=== PATIENT | female | born 1995 | race Caucasian/White ===

== ENCOUNTER 2019-05-18 19:50 | Emergency (ER) | payer OTHER, MEDICAID, SELFPAY ==
[2019-05-18 19:58] VITALS: BP 122/61; PULSE 86; RESP 24; TEMP 36.8; O2SAT 100; BMI 24.3
--- NOTE | 2019-05-18 20:00 | ED_ITS ---
HPI - Anxiety General Chief Complaint: Asthma Stated Complaint: states asthma attack Time Seen by Provider: 05/18/19 19:52 Source: patient Mode of arrival: Ambulatory Limitations: no limitations History of Present Illness HPI narrative: 24-year-old female nonsmoker with a history of bronchospasm associated with bronchitis as well as chronic epigastric pain presents with an episode of epigastric pain that came on relatively suddenly and made her admittedly feel anxious. Furthermore she felt like she could not breathe, stating the pain in her epigastrium a hard for her take a breath in. She denies any fever chills nor cough. She denies any chest pain. She denies nausea, vomiting or diarrhea. She states the pain in her epigastrium is worse with palpation and deep breath. She denies radiation of this pain. MD complaint: anxiety and shortness of breath Onset (ago): minute(s) Symptoms: dyspnea Severity: moderate Quality: intermittent Place: home Provoking factors: none known Relieving factors: nothing Associated symptoms: shortness of breath Related Data Previous Rx's Medication Instructions Recorded fluconazole [Diflucan] 150 mg PO SEE INSTRUCTIONS #2 tab 07/26/16 Allergies Allergy/AdvReac Type Severity Reaction Status Date / Time No Known Drug Allergies Allergy Verified 05/18/19 19:58 Review of Systems Constitutional Constitutional: Denies chills, Denies fatigue, Denies fever(s), Denies frequent falls, Denies lethargy and Denies weakness Eyes Eyes: Denies change in vision, Denies eye discharge, Denies irritation and Denies loss of vision ENT Ears, Nose, Mouth, and Throat: Denies change in voice, Denies dizziness, Denies neck pain, Denies sore throat and Denies throat swelling Cardiovascular Cardiovascular: Denies chest pain, Denies irregular heart rhythm, Denies lightheadedness, Denies palpitations, Reports dyspnea, Denies dyspnea on exertion and Denies orthopnea Respiratory Respiratory: Denies cough, Reports dyspnea, Denies dyspnea on exertion and Reports wheezing Gastrointestinal Gastrointestinal: Reports abdominal pain, Denies change in bowel habits, Denies diarrhea, Denies nausea and Denies vomiting Genitourinary Genitourinary: Denies hematuria, Denies flank pain, Denies urinary incontinence and Denies urinary urgency Musculoskeletal Musculoskeletal: Denies back pain, Denies muscle weakness, Denies neck pain, Denies numbness and Denies tingling Integumentary/Breasts Skin/Breast: Denies pruritus, Denies erythema, Denies rash and Denies wounds Neurologic Neurologic: Denies behavioral changes, Denies confusion, Denies dizziness, Denies frequent falls, Denies loss of vision, Denies numbness, Denies tingling and Denies weakness Psychiatric Psychiatric: Reports anxiety, Denies behavioral changes, Denies confusion, Denies depression, Denies homicidal ideation and Denies suicidal ideation Endocrine Endocrine: Denies fatigue, Denies flushing and Denies palpitations Hematologic/Lymphatic Hematologic/Lymphatic: Denies easy bruising Allergic/Immunologic Allergic/Immunologic: Denies urticaria, Denies throat swelling and Reports wheezing Patient History Surgical History Status post myringotomy with insertion of tube Family History (Updated 08/22/13 @ 00:00 by Enrique Benson MD) Father Age: 46 Obesity Mother Age: 46 Cholecystitis Social History Smoking Status: Never smoker Family History Father Age: 46 Obesity Mother Age: 46 Cholecystitis Social History Smoking Status: Never smoker Exam Narrative Exam Narrative: GENERAL: [24] year old patient appears stated age. Well- nourished, well-developed patient, in moderate distress, complaining of difficulty breathing, anxious, rapidly improves HEAD: Atraumatic. Normocephalic. EYES: Pupils equal round and reactive. Extraocular motions intact. No scleral icterus. No injection or drainage. ENT: Nose without bleeding, purulent drainage. Throat without erythema, tonsillar hypertrophy or exudate. Airway patent. NECK: Trachea midline. Non tender CARDIOVASCULAR: Regular rate and rhythm without murmurs, gallops, or rubs. RESPIRATORY: Clear to auscultation. Breath sounds equal bilaterally. No wheezes, rales, or rhonchi. GASTROINTESTINAL: Abdomen soft, minimal tenderness to palpation in the epigastrium, nondistended. EXTREMITIES: No edema or joint tenderness. BACK: Nontender without deformity or crepitance. No flank tenderness. NEURO: AOx3. SKIN: No rash or erythema of visible areas Initial Vital Signs Initial Vital Signs: Vital Signs Temperature 98.2 F 05/18/19 19:58 Pulse Rate 86 05/18/19 19:58 Respiratory Rate 24 05/18/19 19:58 Blood Pressure 122/61 05/18/19 19:58 Pulse Oximetry 100 05/18/19 19:58 Course Course Course Narrative: Patient rapidly improved upon arrival to the department, she seemed to respond to the DuoNeb which she admits help her breathing. The remainder of her visit she was resting comfortably. Lungs were clear, no systemic findings. The epigastrium use with normal ultrasound obtained. No labs indicated. Orders Ordered: ED Orders 05/18/19 20:01 US abdomen limited Stat Discontinued Medications Albuterol (Ventolin Hfa Prepack) 1 box MISC SEEINSTR ONE Stop: 05/18/19 21:55 Last Admin: 05/18/19 22:04 Dose: 1 box Documented by: DUNIA Albuterol/Ipratropium (Duoneb) 3 ml INH NOW ONE Stop: 05/18/19 20:00 Last Admin: 05/18/19 20:01 Dose: 3 ml Documented by: DUNIA Al Hydrox/Mg Hydrox/Simethicone 20 ml/ Lidocaine HCl 15 ml 0 ml PO NOW ONE Stop: 05/18/19 20:01 Last Admin: 05/18/19 20:30 Dose: 30 ml Documented by: DEBBY Vital Signs Vital signs: Vital Signs - 8 hr 05/18/19 19:58 05/18/19 20:05 05/18/19 22:14 Temperature 98.2 F Pulse Rate 86 68 66 Respiratory Rate 24 18 17 Blood Pressure 122/61 118/64 Pulse Oximetry 100 99 100 Discharge Plan Departure Patient Disposition: Home Clinical Impression: Acute epigastric pain, Anxiety, Acute bronchospasm Discharge Date/Time: 05/18/19 22:17 Instructions: DI for Epigastric Pain Activity Restrictions/Additional Instructions: *You have been diagnosed with [ epigastric pain, bronchospasm ] *What to do: *Take medications as directed, including an [id number] antacid like Pepcid or Zantac *Follow up with your primary care provider in 2-3 days, call for an appointment. Let them know you were seen in the Emergency Department and that we ask that you be seen in follow up *Return to ER if you should have any new, worsening or concerning symptoms Prescriptions: No Action fluconazole [Diflucan] 150 MG tablet 150 mg PO SEE INSTRUCTIONS Qty: 2 RF: 0 Referrals: Clark Wang MD [Primary Care Provider] - Stand Alone Forms: Work Release Note
[2019-05-18] MEDS: ALBUTEROL/IPRATROPIUM 3 ML AMPUL INH (20:01)
--- NOTE | 2019-05-18 20:01 | DI.US.S_ITS ---
PROCEDURE: US ABDOMEN LIMITED INDICATIONS: SEVERE EPIGASTRIC PAIN TECHNIQUE: Real-time focused scanning was performed of the abdomen, with image documentation. COMPARISON: Abdominal ultrasound 12/11/2015. FINDINGS: Liver: Echogenicity is within normal limits. Normal in size. Gallbladder: Mildly prominent. No stones or sludge. Normal gallbladder wall thickness. No pericholecystic fluid. Negative sonographic Juarez's sign. Bile ducts: CBD is normal measuring measures 3 mm. No intrahepatic ductal dilatation. Right kidney: No hydronephrosis. Miscellaneous: No free fluid seen. IMPRESSION: 1. No cholecystitis. Gallbladder is mildly prominent in size which could be due to n.p.o. status. No gallstones. 2. No biliary ductal dilatation. 3. No right kidney hydronephrosis. Dictated by: Christopher Roa M.D. on 05/18/2019 at 22:12 Approved by: Christopher Roa M.D. on 05/18/2019 at 22:15
[2019-05-18 20:05] VITALS: PULSE 68; RESP 18; O2SAT 99
[2019-05-18] MEDS: MAG HYDROX/ALUMINUM/SIMETH SUS 20 ML, LIDOCAINE VISCOUS 2% 15 ML PO (20:30)
--- NOTE | 2019-05-18 20:33 | PC.NURSE ---
pt reports a 4/10 heartburn feeling. Provided GI cocktail.
[2019-05-18] MEDS: ALBUTEROL HFA PREPACK 1 BOX MISC (22:04)
[2019-05-18 22:14] VITALS: BP 118/64; PULSE 66; RESP 17; O2SAT 100
== END 2019-05-18 22:17 | disposition home or self-care (01) ==
PROVIDERS: Emergency Provider Emergency Medicine; PCP Orthopaedic Surgery
DX: R10.13 Epigastric pain (principal); F41.9 Anxiety disorder, unspecified; J98.01 Acute bronchospasm
CPT/HCPCS: 76705; 76830; 94150; 94640; 99282; 99284

== ENCOUNTER 2019-06-18 18:57 | Emergency (ER) | payer OTHER, MEDICAID, SELFPAY ==
[2019-06-18 19:04] VITALS: BP 110/59; PULSE 68; RESP 16; TEMP 37.1; O2SAT 100; BMI 25.7
[2019-06-18] MEDS: PANTOPRAZOLE 40 MG VIAL IV (19:15)
[2019-06-18] MEDS: SODIUM CHLORIDE 0.9% 1,000 ML 1000 ML IV (19:15)
[2019-06-18] MEDS: ONDANSETRON 4 MG/2 ML INJ IV (19:15)
[2019-06-18 19:17] LABS: Add Manual Diff / Slide Review NO; Basophils Absolute Auto 0 /uL (0-100); Basophils Percent Auto 0.6 % (0-2); Eosinophils Absolute Auto 0 /uL (0-450); Eosinophils Percent Auto 0.3 % (2-4); Hematocrit 39.8 % (36-46); Hemoglobin 13.5 g/dL (12.0-16.0); Lymphocytes Absolute Auto 900 /uL (1100-4500); Lymphocytes Percent Auto 13.4 % (25-40); Mean Corpuscular Hemoglobin 30.6 PG (26-34); Mean Corpuscular Volume 90.1 fL (80-100); Monocytes Absolute Auto 400 /uL (0-900); Monocytes Percent Auto 5.7 % (3-14); Neutrophils Absolute Auto 5300 /uL (1500-7000); Platelet Count 243 X10^3/uL (150-400); Red Blood Cell Count 4.42 X10^6/uL (4.0-5.2); Red Cell Distribution Width 13.3 % (11.6-14.8); White Blood Cell Count 6.6 X10^3/uL (4.5-11.0)
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
[2019-06-18 19:33] LABS: Blood Urea Nitrogen 11 mg/dL (7-17); Calcium 9.1 mg/dL (8.4-10.2); Carbon Dioxide 24 mmol/L (22-32); Chloride 106 mmol/L (98-107); Estimated Glomerular Filt Rate > 60.0 mL/min (>60); Glucose 102 mg/dL (70-100); HEMOLYSIS < 15 (0-50); Potassium 3.8 mmol/L (3.4-5.1); Sodium 138 mmol/L (137-145)
[2019-06-18 20:06] VITALS: BP 110/57; PULSE 72; RESP 16; O2SAT 98
== END 2019-06-18 20:07 | disposition home or self-care (01) ==
PROVIDERS: Emergency Provider Emergency Medicine; PCP Orthopaedic Surgery
DX: E86.0 Dehydration (principal); R11.2 Nausea with vomiting, unspecified
CPT/HCPCS: 36415; 80048; 85025; 96361; 96374; 96375; 99283; 99284; C9113; J2405

== ENCOUNTER 2019-09-20 22:56 | Emergency (ER) | payer OTHER, MEDICAID, SELFPAY ==
[2019-09-20 23:06] VITALS: BP 125/59; PULSE 89; RESP 19; TEMP 37.1; O2SAT 100; BMI 24.7
[2019-09-20] MEDS: SODIUM CHLORIDE 0.9% 1,000 ML 1000 ML IV (23:14)
[2019-09-20] MEDS: KETOROLAC 60 MG/2 ML VIAL 30 MG IV (23:14)
[2019-09-20] MEDS: diphenhydrAMINE 50 MG/ML VIAL 25 MG IV (23:14)
[2019-09-20] MEDS: METOCLOPRAMIDE 10 MG/2 ML INJ IV (23:14)
--- NOTE | 2019-09-20 23:20 | ED_ITS ---
HPI - Headache General Chief Complaint: Headache Stated Complaint: headache, uncontrolled shaking, vomiting Time Seen by Provider: 09/20/19 23:02 Source: patient Mode of arrival: Ambulatory Limitations: no limitations History of Present Illness HPI Narrative: 24-year-old female. Prior history of migraine headaches here for evaluation of a migraine headache. She states that her headache started approximately 1600 hours this afternoon. Was gradual onset. States that it feels in character like her prior headaches only worse. Has not tried anything for the symptoms prior to arrival. Related Data Previous Rx's Medication Instructions Recorded fluconazole [Diflucan] 150 mg PO SEE INSTRUCTIONS #2 tab 07/26/16 ondansetron 4 mg PO TID-QID PRN #10 tab 06/18/19 Allergies Allergy/AdvReac Type Severity Reaction Status Date / Time No Known Drug Allergies Allergy Verified 06/18/19 19:06 Review of Systems Constitutional Constitutional: Denies fever(s) and Reports headache(s) Eyes Eyes: Denies blurry vision, Denies diplopia and Reports photophobia ENT Ears, Nose, Mouth, and Throat: Reports headache(s), Denies sinus pressure and Denies sore throat Cardiovascular Cardiovascular: Denies chest pain and Denies dyspnea Respiratory Respiratory: Denies dyspnea Gastrointestinal Gastrointestinal: Reports vomiting Musculoskeletal Musculoskeletal: Denies myalgias and Denies arthralgias Integumentary/Breasts Skin/Breast: Denies rash Neurologic Neurologic: Denies behavioral changes and Reports headache(s) Psychiatric Psychiatric: Denies behavioral changes Hematologic/Lymphatic Hematologic/Lymphatic: Denies easy bleeding and Denies easy bruising Patient History Medical History Acute costochondritis (Inactive) Bacterial vaginosis (Inactive) Epigastric abdominal pain (Inactive) Ethmoid sinusitis (Inactive) Eustachian tube dysfunction (Inactive) Gastritis (Inactive) Sinusitis, acute (Inactive) Sprain of hand, thumb, right (Inactive) Vaginitis (Inactive) Surgical History Status post myringotomy with insertion of tube Social History Smoking Status: Never smoker Smoking Status: Never smoker alcohol intake frequency: holidays/special occasions only Substance Use Type: does not use Exam Initial Vital Signs Initial Vital Signs: Vital Signs Temperature 98.7 F 09/20/19 23:06 Pulse Rate 89 09/20/19 23:06 Respiratory Rate 19 09/20/19 23:06 Blood Pressure 125/59 L 09/20/19 23:06 Pulse Oximetry 100 09/20/19 23:06 Const General: cooperative and well developed Limitations: mental status not altered HENMT Head: normal to inspection and normocephalic Resp Effort & Inspection: normal respiratory effort Auscultation: clear to auscultation bilaterally Cardio Rate: regular rate Rhythm: regular rhythm Skin Lesions: no lesions Rashes: no rashes Neuro General: alert, awake and oriented x3 Cranial Nerves: CN's II-XI intact bilaterally Cognition: normal cognition Speech: speech normal Extrem General: normal to inspection and capillary refill normal Scores GCS Marlene coma scale eye opening: Spontaneous Marlene coma scale verbal response: Orientated Marlene coma scale motor response: Obey commands Marlene coma scale total score: 15 Course Orders Ordered: ED Orders 09/20/19 23:21 Basic Metabolic Panel Stat Complete Blood Count AUTO DIFF Stat Test Serum,Qual Stat Discontinued Medications Diphenhydramine HCl (Benadryl) 25 mg IV NOW ONE Stop: 09/20/19 23:06 Last Admin: 09/20/19 23:14 Dose: 25 mg Documented by: LUBNA Sodium Chloride (Normal Saline 0.9%) 1,000 mls @ 1,000 mls/hr IV BOLUS ONE Stop: 09/21/19 00:04 Last Infusion: 09/21/19 00:16 Dose: 0 mls/hr Documented by: Admin: 09/20/19 23:14 Dose: 1,000 mls/hr Documented by: LUBNA Ketorolac Tromethamine (Toradol) 30 mg IV NOW ONE Stop: 09/20/19 23:06 Last Admin: 09/20/19 23:14 Dose: 30 mg Documented by: LUBNA Metoclopramide HCl (Reglan) 10 mg IV NOW ONE Stop: 09/20/19 23:06 Last Admin: 09/20/19 23:14 Dose: 10 mg Documented by: LUBNA Vital Signs Vital signs: Vital Signs - 8 hr 09/20/19 23:06 09/21/19 00:17 Temperature 98.7 F Pulse Rate 89 70 Respiratory Rate 19 16 Blood Pressure 125/59 L Blood Pressure [Left Arm] 93/51 L Pulse Oximetry 100 100 MDM - Headache Lab Data Attestation: I reviewed the patient's lab results. Result diagrams: 09/20/19 23:21 09/20/19 23:21 Labs: Lab Results 09/20/19 09/20/19 09/20/19 Range/Units 23:21 23:21 23:21 WBC 14.2 H (4.5-11.0) X10^3/uL RBC 4.29 (4.0-5.2) X10^6/uL Hgb 13.1 (12.0-16.0) g/dL Hct 38.4 (36-46) % MCV 89.6 (80-100) fL MCH 30.4 (26-34) PG MCHC 34.0 (30-36) % RDW 12.8 (11.6-14.8) % Plt Count 266 (150-400) X10^3/uL Neut % (Auto) 85.2 H (50-75) % Lymph % (Auto) 8.8 L (25-40) % [place] % (Auto) 5.1 (3-14) % Eos % (Auto) 0.4 L (2-4) % Baso % (Auto) 0.5 (0-2) % Neut # (Auto) 02810 H (7531-7847) /uL Lymph # (Auto) 1300 (6579-2686) /uL [place] # (Auto) 700 (0-900) /uL Eos # (Auto) 100 (0-450) /uL Baso # (Auto) 100 (0-100) /uL Sodium 142 (137-145) mmol/L Potassium 3.6 (3.4-5.1) mmol/L Chloride 106 (98-107) mmol/L Carbon Dioxide 25 (22-32) mmol/L BUN 12 (7-17) mg/dL Creatinine 0.60 (0.52-1.04) mg/dL Estimated GFR > 60.0 (>60) mL/min BUN/Creatinine Ratio 20.0 (6-22) Glucose 126 H (70-100) mg/dL Calcium 9.7 (8.4-10.2) mg/dL Serum , Qual Negative (Negative) MDM Narrative Medical decision making narrative: Patient has a leukocytosis however I suspect that this is demargination/stress reaction from the retching in the vomiting that she has been doing for the past several hours. Nonfocal neurologic exam. Has a history of headaches. States this feels in character just like her prior headaches only worse. No fevers. Low suspicion for meningitis. No trauma. I feel that we can hold on radiologic studies. States that her headache went from a 10/10 to a /10 with medications. Will discharge home with return precautions. Discharge Plan Departure Patient Disposition: Home Clinical Impression: Migraine Qualifiers: Migraine type: unspecified Status migrainosus presence: without status migrainosus Intractability: not intractable Qualified Code(s): G43.909 - Migraine, unspecified, not intractable, without status migrainosus Instructions: DI for Migraine Activity Restrictions/Additional Instructions: Continue all of your medications as directed. Recommend you talk with your primary provider about further workup and treatment of your headaches. Return to the emergency department for any new or worsening symptoms Prescriptions: No Action fluconazole [Diflucan] 150 MG tablet 150 mg PO SEE INSTRUCTIONS Qty: 2 RF: 0 ondansetron 4 mg tablet,disintegrating 4 mg PO TID-QID PRN (Reason: nausea and vomiting) Qty: 10 RF: 0 Referrals: Clark Wang MD [Primary Care Provider] -
[2019-09-20 23:29] LABS: Add Manual Diff / Slide Review NO; Basophils Absolute Auto 100 /uL (0-100); Basophils Percent Auto 0.5 % (0-2); Eosinophils Absolute Auto 100 /uL (0-450); Eosinophils Percent Auto 0.4 % (2-4); Hematocrit 38.4 % (36-46); Hemoglobin 13.1 g/dL (12.0-16.0); Lymphocytes Absolute Auto 1300 /uL (1100-4500); Lymphocytes Percent Auto 8.8 % (25-40); Mean Corpuscular Hemoglobin 30.4 PG (26-34); Mean Corpuscular Volume 89.6 fL (80-100); Monocytes Absolute Auto 700 /uL (0-900); Monocytes Percent Auto 5.1 % (3-14); Neutrophils Absolute Auto 12000 /uL (1500-7000); Neutrophils Percent Auto 85.2 % (50-75); Platelet Count 266 X10^3/uL (150-400); Red Blood Cell Count 4.29 X10^6/uL (4.0-5.2); Red Cell Distribution Width 12.8 % (11.6-14.8); White Blood Cell Count 14.2 X10^3/uL (4.5-11.0)
[2019-09-20 23:39] LABS: Blood Urea Nitrogen 12 mg/dL (7-17); Calcium 9.7 mg/dL (8.4-10.2); Carbon Dioxide 25 mmol/L (22-32); Chloride 106 mmol/L (98-107); Estimated Glomerular Filt Rate > 60.0 mL/min (>60); Glucose 126 mg/dL (70-100); HEMOLYSIS < 15 (0-50); Potassium 3.6 mmol/L (3.4-5.1); Pregnancy Test Serum,Qual Negative (Negative); Sodium 142 mmol/L (137-145)
[2019-09-21 00:17] VITALS: BP 93/51; PULSE 70; RESP 16; O2SAT 100
== END 2019-09-21 01:05 | disposition home or self-care (01) ==
PROVIDERS: Emergency Provider Emergency Medicine; PCP Orthopaedic Surgery
DX: G43.909 Migraine, unspecified, not intractable, without status migrainosus (principal)
CPT/HCPCS: 36415; 80048; 84703; 85025; 96361; 96374; 96375; 99284; J1200; J1885; J2765

== ENCOUNTER 2020-04-08 21:10 | Emergency (ER) | payer OTHER, MEDICAID, SELFPAY ==
[2020-04-08 21:17] VITALS: BP 128/79; PULSE 74; RESP 12; TEMP 37.1; O2SAT 98; BMI 25.4
[2020-04-08 21:35] LABS: Bacteria Urine None Seen
--- NOTE | 2020-04-08 21:38 | ED.FEMALEGU ---
HPI - Female Genitourinary General Chief complaint: Urogenital-Female Stated complaint: thinks UTI or STD Time Seen by Provider: 04/08/20 21:22 Source: patient Mode of arrival: Ambulatory History of Present Illness HPI Narrative: 25-year-old otherwise healthy young woman with 4 days of dysuria symptoms. She did have unprotected intercourse 5 days ago with a new partner. She describes some brownish vaginal discharge consistent with what her menstrual cycle usually looks like with the Mirena. She notes that it feels like she needs to urinate does not actually burn when she does go but is having just low pelvic discomfort. Azo [id number] has not helpful in controlling her symptoms. She is having no abdominal pain, fever, flank pain, nausea, vomiting, diarrhea. She has noted no itching, rashes bumps lesions or vesicles in the genital area. No coughing, shortness of breath or chest pain. Related Data Previous Rx's Medication Instructions Recorded fluconazole [Diflucan] 150 mg PO SEE INSTRUCTIONS #2 tab 07/26/16 ondansetron 4 mg PO TID-QID PRN #10 tab 06/18/19 Allergies Allergy/AdvReac Type Severity Reaction Status Date / Time No Known Drug Allergies Allergy Verified 06/18/19 19:06 Review of Systems Review of Systems Narrative: Remainder of review of systems including constitutional, ENT, cardiovascular, respiratory, GI, , musculoskeletal, skin, neurologic and psychiatric systems reviewed and are unremarkable except as noted in HPI. Patient History Medical History Acute costochondritis (Inactive) Bacterial vaginosis (Inactive) Epigastric abdominal pain (Inactive) Ethmoid sinusitis (Inactive) Eustachian tube dysfunction (Inactive) Gastritis (Inactive) Sinusitis, acute (Inactive) Sprain of hand, thumb, right (Inactive) Vaginitis (Inactive) Surgical History Status post myringotomy with insertion of tube Family History Father Age: 47 Obesity Mother Age: 47 Cholecystitis alcohol intake frequency: holidays/special occasions only Substance Use Type: does not use Exam Narrative Exam Narrative: General: Healthy appearing, in no acute distress. Able to give a complete and coherent history. Well-nourished well-developed HEENT: Moist mucous membranes, normal sclera with reactive pupils, Neck: supple Respiratory: Lungs are clear to auscultation, no wheezing no rales no rhonchi. Full and symmetrical air movement Cardiac: Regular rate and rhythm no murmurs no bruits Abdomen: Soft nontender good bowel tones, no flank pain Skin: Warm and dry, no rashes Neurologic: Grossly neurologically intact with no obvious asymmetries or abnormalities genital: healthy apppearing external genitalia, no lesions, rashes. Mild slightly brown, non odorous discharge. Psych: Cooperative, appropriate insight and affect Initial Vital Signs Initial Vital Signs: Vital Signs Temperature 98.7 F 04/08/20 21:17 Pulse Rate 74 04/08/20 21:17 Respiratory Rate 12 04/08/20 21:17 Blood Pressure 128/79 04/08/20 21:17 Pulse Oximetry 98 04/08/20 21:17 Scores ABCD2 Citation: Lancet. 2006Aug 26;369(8779):283-. Validation and refinement of scores to predict very early stroke risk after transient ischaemic attack. Kristin SC1, Isabel PM, Isatu MN, Josh MF, Amna JS, Mara AL, Isaac S. Course Orders Ordered: ED Orders 04/08/20 21:33 Urinalysis and Microscopic Stat 04/08/20 21:35 TATI Prep Stat 04/08/20 22:03 Miscellaneous to [facility] Stat Discontinued Medications Azithromycin (Zithromax) 1,000 mg PO NOW ONE Stop: 04/08/20 21:37 Last Admin: 04/08/20 22:01 Dose: 1,000 mg Documented by: AIDA Ceftriaxone Sodium (Rocephin) 250 mg IM NOW ONE Stop: 04/08/20 21:37 Last Admin: 04/08/20 22:02 Dose: 250 mg Documented by: AIDA Ondansetron HCl (Zofran Odt) 4 mg SL NOW ONE Stop: 04/08/20 21:37 Last Admin: 04/08/20 22:01 Dose: 4 mg Documented by: AIDA Vital Signs Vital signs: Vital Signs - 8 hr 04/08/20 21:17 04/08/20 23:24 Temperature 98.7 F 98.7 F Pulse Rate 74 74 Respiratory Rate 12 16 Blood Pressure 128/79 114/72 Pulse Oximetry 98 MDM - Female Genitourinary Medical Records Attestation: I reviewed the patient's medical records. Lab Data Attestation: I reviewed the patient's lab results. Labs: Lab Results 04/08/20 Range/Units 21:33 Urine Color [place] Urine Appearance Clear Urine pH TNP Ur Specific [place] TNP Urine Protein TNP Urine Glucose (UA) TNP Urine Ketones Negative (NEGATIVE) Urine Occult Blood Negative (Negative) Urine Nitrate TNP Urine Bilirubin TNP Urine Urobilinogen TNP Ur Leukocyte Esterase Negative (NEGATIVE) Urine RBC 0-1/hpf (0-5/HPF) Urine WBC 0-1/hpf (0-5/HPF) Ur Squamous Epith Cells 1-5 /hpf (0-5/HPF) Urine Bacteria None seen (None) Urine Mucus 1+ H (Negative) Ur Culture Indicated? Cult not indicated Point of Care Testing Test Results Negative MDM Narrative Medical decision making narrative: 25-year-old woman presents with dysuria complaint similar to the last time she had chlamydia a number of years ago. Urinalysis does not suggest an acute UTI. She has been empirically treated for both gonorrhea chlamydia and tests are pending. To be contacted with results. She is safe for home discharge. Discharge Plan Departure Patient Disposition: Home Clinical Impression: Dysuria Discharge Date/Time: 04/08/20 23:26 Instructions: DI for Chlamydia, DI for Dysuria -- Adult Activity Restrictions/Additional Instructions: Thank you for coming in today Your urine does not look like a bladder infection, you do not have a yeast infection either. I suspect that you are correct in that your chlamydia test will return positive. We should have both a chlamydia and gonorrhea results within a couple of days. In the meantime, you have been treated for both. You do need to let your partner know and if you choose to have sex with him again you viyk to make sure that you use condoms and make sure that he shows you proof of testing and treatment for himself I wish you the best Prescriptions: No Action fluconazole [Diflucan] 150 MG tablet 150 mg PO SEE INSTRUCTIONS Qty: 2 RF: 0 ondansetron 4 mg tablet,disintegrating 4 mg PO TID-QID PRN (Reason: nausea and vomiting) Qty: 10 RF: 0 Referrals: Clark Wang MD [Primary Care Provider] - Stand Alone Forms: Work Release Note
[2020-04-08 21:44] LABS: Appearance Urine UA Clear; Ketones Urine UA NEGATIVE (NEGATIVE); Occult Blood Urine UA NEGATIVE (Negative)
[2020-04-08 21:45] LABS: Color Urine UA Orange; Leukocyte Esterase Urine UA NEGATIVE (NEGATIVE)
[2020-04-08 21:46] LABS: Culture Indicated Urine Cult Not Indicated; Mucus Urine 1+ (Negative); RBC Urine 0-1/HPF (0-5/HPF); Squamous Epithelial Cell Urine 1-5 /HPF (0-5/HPF); WBC Urine 0-1/HPF (0-5/HPF)
[2020-04-08] MEDS: AZITHROMYCIN 250 MG TABLET 1000 MG PO (22:01)
[2020-04-08] MEDS: ONDANSETRON 4 MG ODT SL (22:01)
[2020-04-08] MEDS: LIDOCAINE 1% (PF) 2 ML (22:02)
[2020-04-08] MEDS: cefTRIAXone 1,000 MG VIAL 250 MG IM (22:02)
[2020-04-08 23:24] VITALS: BP 114/72; PULSE 74; RESP 16; TEMP 37.1
== END 2020-04-08 23:26 | disposition home or self-care (01) ==
PROVIDERS: Emergency Provider Emergency Medicine; PCP Orthopaedic Surgery
DX: R30.0 Dysuria (principal); Z11.3 Encounter for screening for infections with a predominantly sexual mode of transmission
CPT/HCPCS: 81001; 81025; 86360; 87220; 96372; 99283; J0696

== ENCOUNTER 2021-10-17 12:31 | Emergency (ER) | payer OTHER, MEDICAID, SELFPAY ==
[2021-10-17 12:40] VITALS: BP 104/62; PULSE 73; RESP 18; TEMP 36.9; O2SAT 98; BMI 20.9
[2021-10-17 12:42] VITALS: PULSE 72; O2SAT 99
[2021-10-17 12:44] VITALS: BP 104/62; PULSE 72; O2SAT 98
[2021-10-17 13:00] VITALS: BP 109/57; PULSE 55; O2SAT 98
--- NOTE | 2021-10-17 13:03 | DI.RAD.S_ITS ---
PROCEDURE: XR LUMBAR SPINE 2-3V INDICATIONS: back pain TECHNIQUE: 2 views of the lumbar spine were acquired. COMPARISON: None. FINDINGS: Bones: This patient has transitional lumbar anatomy. For the purposes of this examination, the level with the small vestigial ribs is considered to be T12. By this numbering scheme, the L5 level is transitional partially sacralized. There is normal bony alignment. No vertebral body compression fractures. No suspicious bony lesions. The disc heights are well preserved. Soft tissues: Overlying bowel gas pattern is normal. No suspicious soft tissue calcifications. The IUD is seen at its expected location. IMPRESSION: No significant lumbar spine abnormality can be seen. If it would be helpful for clinical management decision making, please consider a dedicated, scheduled lumbar spine MRI for further evaluation (assuming that there is no contraindication). Incidental note is made of: Transitional lumbar anatomy IUD Dictated by: El Nicholas M.D. on 10/17/2021 at 12:27 Approved by: El Nicholas M.D. on 10/17/2021 at 12:29
--- NOTE | 2021-10-17 13:05 | ED_ITS ---
HPI - Back Pain/Injury <Pramod Pacheco PA-C - Last Filed: 10/17/21 14:52> General Chief Complaint: Abdominal Pain Stated Complaint: Rt Sided Back Pain Time Seen by Provider: 10/17/21 12:51 Source: patient History of Present Illness HPI Narrative: Patient is a 26-year-old female who presents to the ED complaining of low back pain that radiates to the right side of her buttocks and down into her groin. She admits to having pain in both sides of the groin she was seen by urgent care last week was evaluated for STIs which all came back negative urine was unremarkable no evidence of any urinary tract infection. She denies any complaints of dysuria she denies any vaginal discharge or bleeding she is having increased pain with motion of the back and all things related to movement. Nothing seems to make the back better. She did have some chiropractic manipulation of her back which seemed to help temporarily but then the pain returned. She denies any paresthesia weakness or paralysis of her lower extremities. She denies any fever cough chills nausea vomiting or diarrhea. No recent trauma or fall reported. She states that her back symptoms have been going on for a few weeks and just have become progressively worse. She has a hard labor job lifting heavy crates which she attributes to the cause of her back pain. Related Data Previous Rx's Medication Instructions Recorded fluconazole 150 mg tablet 150 mg PO SEE INSTRUCTIONS #2 tab 07/26/16 (Diflucan) ondansetron 4 mg disintegrating 4 mg PO TID-QID PRN #10 tab 06/18/19 tablet cyclobenzaprine 10 mg tablet 10 mg PO Q8H PRN #21 tab 10/17/21 cyclobenzaprine 10 mg tablet 10 mg PO Q8H PRN #21 tab 10/17/21 ibuprofen 800 mg tablet 800 mg PO Q8H PRN #21 tab 10/17/21 ibuprofen 800 mg tablet 800 mg PO Q8H PRN #21 tab 10/17/21 Allergies Allergy/AdvReac Type Severity Reaction Status Date / Time No Known Drug Allergies Allergy Verified 06/18/19 19:06 Review of Systems <Pramod Pacheco PA-C - Last Filed: 10/17/21 14:52> Review of Systems ROS Unobtainable: All systems reviewed & are unremarkable except as noted in HPI and below Constitutional Constitutional: Denies chills, Denies fatigue, Denies fever(s), Denies frequent falls, Denies lethargy and Denies weakness Eyes Eyes: Denies change in vision, Denies eye discharge, Denies irritation and Denies loss of vision ENT Ears, Nose, Mouth, and Throat: Denies change in voice, Denies dizziness, Denies neck pain, Denies sore throat and Denies throat swelling Cardiovascular Cardiovascular: Denies chest pain, Denies irregular heart rhythm, Denies lightheadedness, Denies palpitations, Denies dyspnea, Denies dyspnea on exertion and Denies orthopnea Respiratory Respiratory: Denies cough, Denies dyspnea, Denies dyspnea on exertion and Denies wheezing Gastrointestinal Gastrointestinal: Denies abdominal pain, Denies change in bowel habits, Denies diarrhea, Denies nausea and Denies vomiting Genitourinary Genitourinary: Denies hematuria, Denies flank pain, Denies urinary incontinence and Denies urinary urgency Musculoskeletal Musculoskeletal: Reports back pain, Reports limited range of motion, Reports muscle weakness, Denies neck pain, Denies numbness and Denies tingling Integumentary/Breasts Skin/Breast: Denies pruritus, Denies erythema, Denies rash and Denies wounds Neurologic Neurologic: Denies behavioral changes, Denies confusion, Denies dizziness, Denies frequent falls, Denies loss of vision, Denies numbness, Denies tingling and Denies weakness Psychiatric Psychiatric: Denies anxiety, Denies behavioral changes, Denies confusion, Denies depression, Denies homicidal ideation and Denies suicidal ideation Endocrine Endocrine: Denies fatigue, Denies flushing and Denies palpitations Hematologic/Lymphatic Hematologic/Lymphatic: Denies easy bruising Allergic/Immunologic Allergic/Immunologic: Denies urticaria, Denies throat swelling and Denies wheezing Patient History <Pramod Pacheco PA-C - Last Filed: 10/17/21 14:52> Medical History (Updated 10/17/21 @ 14:51 by Pramod Pacheco PA-C) Acute costochondritis Bacterial vaginosis Epigastric abdominal pain Ethmoid sinusitis Eustachian tube dysfunction Gastritis Sinusitis, acute Sprain of hand, thumb, right Vaginitis Surgical History Status post myringotomy with insertion of tube Family History Father Age: 49 Obesity Mother Age: 49 Cholecystitis Social History Smoking Status: Never smoker Smoking Status: Never smoker alcohol intake frequency: holidays/special occasions only Substance Use Type: does not use Exam <Pramod Pacheco PA-C - Last Filed: 10/17/21 14:52> Initial Vital Signs Initial Vital Signs: Vital Signs Temperature 98.4 F 10/17/21 12:40 Pulse Rate 73 10/17/21 12:40 Respiratory Rate 18 10/17/21 12:40 Blood Pressure 104/62 10/17/21 12:40 Pulse Oximetry 98 10/17/21 12:40 Const General: cooperative, healthy appearing, comfortable and well developed Nutritional Appearance: well nourished Orientation: Orientation [facility] Head: normal to inspection, normocephalic and atraumatic Ears: hearing grossly normal bilaterally and external ears normal Nose: external nose normal and nares normal Face and sinus: normal facial exam Eyes Pupils: PERRL Resp Effort & Inspection: normal respiratory effort and able to speak in complete sentences Auscultation: clear to auscultation bilaterally Back/Spine/Pelvis Back: normal to inspection and back tenderness Thoracic/Lumbar Spine: thoracic and lumbar spine normal to inspection, pain with thoraco-lumbar ROM, paraspinal tenderness and thoraco-lumbar ROM limited Neuro General: patient alert, patient awake, patient oriented x3 and CN's II-XI intact bilaterally DTR's: Rt Patellar: 2+, Lt Patellar: 2+, Rt Ankle: 2+ and Lt Ankle: 2+ <Crystal Vick DO - Last Filed: 10/21/21 08:12> Initial Vital Signs Initial Vital Signs: Vital Signs Temperature 98.4 F 10/17/21 12:40 Pulse Rate 73 10/17/21 12:40 Respiratory Rate 18 10/17/21 12:40 Blood Pressure 104/62 10/17/21 12:40 Pulse Oximetry 98 10/17/21 12:40 Course <Pramod Pacheco PA-C - Last Filed: 10/17/21 14:52> Orders Ordered: ED Orders 10/17/21 12:54 EKG-12 Lead Stat 10/17/21 13:03 XR lumbar spine 2-3V Stat 10/17/21 13:30 Complete Blood Count AUTO DIFF Stat Comprehensive Metabolic Panel Stat Lipase Stat Vital Signs Vital signs: Vital Signs - 8 hr 10/17/21 12:40 Temperature 98.4 F Pulse Rate 73 Respiratory Rate 18 Blood Pressure 104/62 Pulse Oximetry 98 <Crystal Vick DO - Last Filed: 10/21/21 08:12> Orders Ordered: ED Orders 10/17/21 12:54 EKG-12 Lead Stat 10/17/21 13:03 XR lumbar spine 2-3V Stat 10/17/21 13:30 Complete Blood Count AUTO DIFF Stat Comprehensive Metabolic Panel Stat Lipase Stat Vital Signs Vital signs: Vital Signs - 8 hr 10/17/21 12:40 Temperature 98.4 F Pulse Rate 73 Respiratory Rate 18 Blood Pressure 104/62 Pulse Oximetry 98 MDM - Back Pain/Injury <Pramod Pacheco PA-C - Last Filed: 10/17/21 14:52> Differential Diagnosis Differential diagnosis: Likely strain of lumbar region Lab Data Result diagrams: 10/17/21 13:30 10/17/21 13:30 Labs: Lab Results 10/17/21 10/17/21 Range/Units 13:30 13:30 WBC 6.4 (4.5-11.0) X10^3/uL RBC 4.32 (4.0-5.2) X10^6/uL Hgb 13.3 (12.0-16.0) g/dL Hct 39.0 (36-46) % MCV 90.4 (80-100) fL MCH 30.8 (26-34) PG MCHC 34.1 (30-36) % RDW 14.6 (11.6-14.8) % Plt Count 243 (150-400) X10^3/uL Neut % (Auto) 57.4 (50-75) % Lymph % (Auto) 29.5 (25-40) % [place] % (Auto) 9.6 (3-14) % Eos % (Auto) 2.3 (2-4) % Baso % (Auto) 1.2 (0-2) % Neut # (Auto) 3700 (9824-5474) /uL Lymph # (Auto) 1900 (2999-7622) /uL [place] # (Auto) 600 (0-900) /uL Eos # (Auto) 100 (0-450) /uL Baso # (Auto) 100 (0-100) /uL Sodium 139 (137-145) mmol/L Potassium 4.2 (3.4-5.1) mmol/L Chloride 109 H (98-107) mmol/L Carbon Dioxide 25 (22-32) mmol/L BUN 11 (7-17) mg/dL Creatinine 0.51 L (0.52-1.04) mg/dL Estimated GFR > 60.0 (>60) mL/min BUN/Creatinine Ratio 21.6 (6-22) Glucose 91 (70-100) mg/dL Calcium 9.2 (8.4-10.2) mg/dL Total Bilirubin 0.8 (0.2-1.3) mg/dL AST 25 (14-36) IU/L ALT 22 (<35) IU/L Alkaline Phosphatase 50 (38-126) U/L Total Protein 8.2 (6.3-8.2) g/dL Albumin 4.6 (3.5-5.0) g/dL Globulin 3.6 (1.7-4.1) g/dL Albumin/Globulin Ratio 1.3 (1.0-2.8) Lipase 37 (23-300) U/L Point of Care Testing Test Results Negative Urine Dip Bedside Urine Glucose Negative Bedside Urine Bilirubin - Negative Bedside Urine Ketone - Negative Urine Specific [place] 1.02 Bedside Urine Occult Blood - Negative Bedside Urine pH 6 Bedside Urine Protein - Negative Bedside Urine Urobilinogen - Negative Bedside Urine Nitrite - Negative Bedside Urine Leukocytes - Negative Esterase Imaging Data Lumbar XR: Radiologist's Impression: PROCEDURE:? XR LUMBAR SPINE 2-3V ? INDICATIONS:? back pain ? TECHNIQUE:? 2 views of the lumbar spine were acquired.? ? COMPARISON:? None. ? FINDINGS:? ? Bones: This patient has transitional lumbar anatomy. For the purposes of this examination, the level with the small vestigial ribs is considered to be T12.? By this numbering scheme, the L5 level is transitional partially sacralized. ? There is normal bony alignment.? No vertebral body compression fractures.? No suspicious bony lesions.? ? The disc heights are well preserved. ? Soft tissues:? Overlying bowel gas pattern is normal.? No suspicious soft tissue calcifications.? The IUD is seen at its expected location.? ? ? IMPRESSION:? No significant lumbar spine abnormality can be seen. ? If it would be helpful for clinical management decision making, please consider a dedicated, scheduled lumbar spine MRI for further evaluation (assuming that there is no contraindication).? ? ? Incidental note is made of: Transitional lumbar anatomy IUD ? ? Dictated by: El Nicholas M.D. on 10/17/2021 at 12:27 ? ? Approved by: El Nicholas M.D. on 10/17/2021 at 12:29?? MDM Narrative Medical decision making narrative: Patient was evaluated today for low back pain. Pain radiates into both groin areas UA does not show any signs of infection x-rays of the lumbar spine are essentially normal based on her exam today I think it is feasible that this is likely lumbar strain I spoke to her about some muscle relaxers and anti- inflammatories which she was agreeable those will be prescribed to the pharmacy on record and she can be discharged home. <Crystal Vick, DO - Last Filed: 10/21/21 08:12> Lab Data Labs: Lab Results 10/17/21 10/17/21 Range/Units 13:30 13:30 WBC 6.4 (4.5-11.0) X10^3/uL RBC 4.32 (4.0-5.2) X10^6/uL Hgb 13.3 (12.0-16.0) g/dL Hct 39.0 (36-46) % MCV 90.4 (80-100) fL MCH 30.8 (26-34) PG MCHC 34.1 (30-36) % RDW 14.6 (11.6-14.8) % Plt Count 243 (150-400) X10^3/uL Neut % (Auto) 57.4 (50-75) % Lymph % (Auto) 29.5 (25-40) % [place] % (Auto) 9.6 (3-14) % Eos % (Auto) 2.3 (2-4) % Baso % (Auto) 1.2 (0-2) % Neut # (Auto) 3700 (8650-9785) /uL Lymph # (Auto) 1900 (4655-0928) /uL [place] # (Auto) 600 (0-900) /uL Eos # (Auto) 100 (0-450) /uL Baso # (Auto) 100 (0-100) /uL Sodium 139 (137-145) mmol/L Potassium 4.2 (3.4-5.1) mmol/L Chloride 109 H (98-107) mmol/L Carbon Dioxide 25 (22-32) mmol/L BUN 11 (7-17) mg/dL Creatinine 0.51 L (0.52-1.04) mg/dL Estimated GFR > 60.0 (>60) mL/min BUN/Creatinine Ratio 21.6 (6-22) Glucose 91 (70-100) mg/dL Calcium 9.2 (8.4-10.2) mg/dL Total Bilirubin 0.8 (0.2-1.3) mg/dL AST 25 (14-36) IU/L ALT 22 (<35) IU/L Alkaline Phosphatase 50 (38-126) U/L Total Protein 8.2 (6.3-8.2) g/dL Albumin 4.6 (3.5-5.0) g/dL Globulin 3.6 (1.7-4.1) g/dL Albumin/Globulin Ratio 1.3 (1.0-2.8) Lipase 37 (23-300) U/L Point of Care Testing Test Results Negative Urine Dip Bedside Urine Glucose Negative Bedside Urine Bilirubin - Negative Bedside Urine Ketone - Negative Urine Specific [place] 1.02 Bedside Urine Occult Blood - Negative Bedside Urine pH 6 Bedside Urine Protein - Negative Bedside Urine Urobilinogen - Negative Bedside Urine Nitrite - Negative Bedside Urine Leukocytes - Negative Esterase Discharge Plan Departure Patient Disposition: Home Clinical Impression: Lumbar back sprain Instructions: DI for Back Strain or Sprain Activity Restrictions/Additional Instructions: You are evaluated today for your back pain. I sent 2 prescriptions to your pharmacy of choice 1 is a anti-inflammatory medication and the other is a muscle relaxer that I would recommend you take together every 8 hours. You can also try a bio freeze icy Hot or heating pad as additional treatment options. Fo llow-up with your PCP if it is not effective or he can return to the ED as needed. Prescriptions: New cyclobenzaprine 10 mg tablet 10 mg PO Q8H PRN (Reason: muscle spasm) Qty: 21 0RF ibuprofen 800 mg tablet 800 mg PO Q8H PRN (Reason: pain) Qty: 21 0RF cyclobenzaprine 10 mg tablet 10 mg PO Q8H PRN (Reason: muscle spasm) Qty: 21 0RF ibuprofen 800 mg tablet 800 mg PO Q8H PRN (Reason: pain) Qty: 21 0RF No Action fluconazole [Diflucan] 150 MG tablet 150 mg PO SEE INSTRUCTIONS Qty: 2 0RF ondansetron 4 mg tablet,disintegrating 4 mg PO TID-QID PRN (Reason: nausea and vomiting) Qty: 10 0RF Referrals: Clark Wang MD [Primary Care Provider] - <Crystal Vick DO - Last Filed: 10/21/21 08:12> Cosign ED Attending Cosanilaature Attestation: I was immediately available in the department for consultation. Documentation has been reviewed.
[2021-10-17 13:45] LABS: Add Manual Diff / Slide Review NO; Basophils Absolute Auto 100 /uL (0-100); Basophils Percent Auto 1.2 % (0-2); Eosinophils Absolute Auto 100 /uL (0-450); Eosinophils Percent Auto 2.3 % (2-4); Hemoglobin 13.3 g/dL (12.0-16.0); Lymphocytes Absolute Auto 1900 /uL (1100-4500); Lymphocytes Percent Auto 29.5 % (25-40); Mean Corpuscular HGB Conc 34.1 % (30-36); Mean Corpuscular Hemoglobin 30.8 PG (26-34); Mean Corpuscular Volume 90.4 fL (80-100); Monocytes Absolute Auto 600 /uL (0-900); Monocytes Percent Auto 9.6 % (3-14); Neutrophils Absolute Auto 3700 /uL (1500-7000); Neutrophils Percent Auto 57.4 % (50-75); Platelet Count 243 X10^3/uL (150-400); Red Blood Cell Count 4.32 X10^6/uL (4.0-5.2); Red Cell Distribution Width 14.6 % (11.6-14.8); White Blood Cell Count 6.4 X10^3/uL (4.5-11.0)
[2021-10-17 14:06] LABS: Alanine Aminotransferase 22 IU/L (<35); Albumin 4.6 g/dL (3.5-5.0); Albumin Globulin Ratio 1.3 (1.0-2.8); Alkaline Phosphatase 50 U/L (38-126); Aspartate Aminotransferase 25 IU/L (14-36); BUN Creatinine Ratio 21.6 (6-22); Bilirubin Total 0.8 mg/dL (0.2-1.3); Blood Urea Nitrogen 11 mg/dL (7-17); Calcium 9.2 mg/dL (8.4-10.2); Carbon Dioxide 25 mmol/L (22-32); Chloride 109 mmol/L (98-107); Estimated Glomerular Filt Rate > 60.0 mL/min (>60); Globulin 3.6 g/dL (1.7-4.1); Glucose 91 mg/dL (70-100); HEMOLYSIS < 15 (0-50); Lipase 37 U/L (23-300); Potassium 4.2 mmol/L (3.4-5.1); Sodium 139 mmol/L (137-145); Total Protein 8.2 g/dL (6.3-8.2)
== END 2021-10-17 15:24 | disposition home or self-care (01) ==
PROVIDERS: Emergency Medicine; Emergency Provider Physician Assistant; PCP Orthopaedic Surgery
DX: S33.5XXA Sprain of ligaments of lumbar spine, initial encounter (principal); X58.XXXA Exposure to other specified factors, initial encounter
CPT/HCPCS: 36415; 72100; 80053; 81003; 81025; 83690; 85025; 99284

== ENCOUNTER 2021-11-08 10:55 | Emergency (ER) | payer OTHER, MEDICAID, SELFPAY ==
[2021-11-08 11:08] VITALS: BP 103/57; PULSE 76; RESP 18; TEMP 36.9; O2SAT 99; BMI 25.7
[2021-11-08 16:00] LABS: Bacteria Urine Occasional (0-1); Culture Indicated Urine Cult Not Indicated; RBC Urine 0-1/HPF (0-5/HPF); Squamous Epithelial Cell Urine 0-1 /HPF (0-5/HPF); WBC Urine 0-1/HPF (0-5/HPF)
== END 2021-11-08 13:56 | disposition left against medical advice (07) ==
PROVIDERS: Emergency Provider Emergency Medicine; PCP Orthopaedic Surgery
DX: M54.9 Dorsalgia, unspecified (principal)
CPT/HCPCS: 81003; 81015; 81025; 99282

== ENCOUNTER 2021-12-18 03:42 | Emergency (ER) | payer OTHER, MEDICAID, SELFPAY ==
[2021-12-18 03:50] VITALS: BP 136/88; PULSE 85; RESP 18; TEMP 36.6; O2SAT 100
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
[2021-12-18] MEDS: HYDROCODONE/ACET 5/325 PREPACK 1 BOTTLE MISC (05:41)
[2021-12-18] MEDS: CYCLOBENZAPRINE 10 MG PREPACK 1 BOTTLE MISC (05:41)
[2021-12-18 05:46] VITALS: BP 120/60; PULSE 76; RESP 18; O2SAT 99
== END 2021-12-18 05:46 | disposition home or self-care (01) ==
PROVIDERS: Emergency Provider Emergency Medicine; PCP Orthopaedic Surgery
DX: S63.501A Unspecified sprain of right wrist, initial encounter (principal); M54.50 Low back pain, unspecified; S80.01XA Contusion of right knee, initial encounter; M54.6 Pain in thoracic spine; M25.561 Pain in right knee; V89.2XXA Person injured in unspecified motor-vehicle accident, traffic, initial encounter
CPT/HCPCS: 72072; 72100; 73110; 73562; 99283

== ENCOUNTER 2021-12-18 08:15 | Emergency (ER) | payer OTHER, MEDICAID, SELFPAY ==
[2021-12-18 08:15] VITALS: BP 119/79; PULSE 117; RESP 17; TEMP 36.4; O2SAT 100; BMI 25.0
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
[2021-12-18] MEDS: ONDANSETRON 4 MG/2 ML INJ IV (08:41)
--- NOTE | 2021-12-18 10:10 | PC.NURSE ---
[address] and xray, resting in recliner chair, no longer vomiting.
[2021-12-18] MEDS: KETOROLAC 30 MG/ML VIAL 15 MG IV (10:39)
[2021-12-18 13:30] VITALS: BP 102/61; PULSE 65; RESP 18; O2SAT 99
== END 2021-12-18 13:31 | disposition home or self-care (01) ==
PROVIDERS: Emergency Provider Emergency Medicine; PCP Orthopaedic Surgery
DX: S06.0X0A Concussion without loss of consciousness, initial encounter (principal); M54.2 Cervicalgia; R11.0 Nausea; V89.2XXA Person injured in unspecified motor-vehicle accident, traffic, initial encounter
CPT/HCPCS: 36415; 70450; 71046; 72125; 96374; 96375; 99284; 99285; J1885; J2405

== ENCOUNTER 2022-04-06 19:39 | Emergency (ER) | payer OTHER, MEDICAID, SELFPAY ==
[2022-04-06 19:48] VITALS: BP 126/53; PULSE 74; RESP 16; TEMP 37; O2SAT 98; BMI 25.2
--- NOTE | 2022-04-06 20:07 | ED_ITS ---
HPI - Female Genitourinary General Chief complaint: Urogenital-Female Stated complaint: Feels like peeing ana maria Time Seen by Provider: 04/06/22 19:41 Source: patient Mode of arrival: Ambulatory History of Present Illness HPI Narrative: 27-year-old femaleNonsmoker with noncontributory medical history presents with a chief complaint of a few days of dysuria, frequency and urgency. She is had mild nausea and minimal flank pain. She denies any fever or chills. She is had no chest pain, shortness of breath or cough. She denies any vaginal bleeding or discharge. She states that she had been seen and evaluated at an outside facility and had a negative urine study yesterday as well as pelvic exam and cultures that were also negative. She presents today due to ongoing symptoms Related Data Home Medications Medication Instructions Recorded Confirmed escitalopram oxalate 10 mg tablet 10 mg PO QAM 11/08/21 11/08/21 Previous Rx's Medication Instructions Recorded ondansetron 4 mg disintegrating 4 mg PO TID-QID PRN nausea and 06/18/19 tablet vomiting #10 tabs ibuprofen 800 mg tablet 800 mg PO Q8H PRN pain #21 tabs 10/17/21 ondansetron 4 mg disintegrating 4 mg PO Q8H PRN nausea and 12/18/21 tablet vomiting #10 tabs ondansetron 4 mg disintegrating 4 mg PO Q8H PRN nausea and 12/18/21 tablet vomiting #10 tabs cephalexin 500 mg capsule 500 mg PO BID #20 caps 04/06/22 ketorolac 10 mg tablet 10 mg PO Q6H PRN pain #14 tabs 04/06/22 Allergies Allergy/AdvReac Type Severity Reaction Status Date / Time No Known Drug Allergies Allergy Verified 11/08/21 11:12 Review of Systems Review of Systems Narrative: GENERAL: Denies chills, fatigue, malaise, fever, sweats. HEENT: Denies sinus pain, ear pain, sore throat, difficulty swallowing, dizziness. RESPIRATORY: Denies dyspnea, cough, wheezing, hemoptysis, sputum. CARDIOVASCULAR: Denies chest pain, palpitations, orthopnea, edema, GASTROINTESTINAL: Denies nausea, vomiting, abdominal pain, diarrhea, constipation, melena. : See HPI MUSCULOSKELETAL: See HPI SKIN: Denies rash, skin lesions, or other NEUROLOGIC: Denies weakness, headache, numbness, change in speech, confusion, seizures, incoordination. PSYCHIATRIC: No concerning psychosocial issues. 12 point review of systems is negative except for those stated above Patient History Medical History Acute costochondritis Bacterial vaginosis Epigastric abdominal pain Ethmoid sinusitis Eustachian tube dysfunction Gastritis Sinusitis, acute Sprain of hand, thumb, right Vaginitis Surgical History Status post myringotomy with insertion of tube Family History Father Age: 49 Obesity Mother Age: 49 Cholecystitis alcohol intake frequency: holidays/special occasions only Substance Use Type: does not use Exam Narrative Exam Narrative: GENERAL: [27] year old patient appears stated age. Well-developed patient, in mild distress. HEAD: Atraumatic. Normocephalic. EYES: Pupils equal round and reactive. Extraocular motions intact. No scleral icterus. No injection or drainage. ENT: Nose without bleeding, purulent drainage. Throat without erythema, tonsillar hypertrophy or exudate. Airway patent. NECK: Trachea midline. Non tender CARDIOVASCULAR: Regular rate and rhythm without murmurs, gallops, or rubs. RESPIRATORY: Clear to auscultation. Breath sounds equal bilaterally. No wheezes, rales, or rhonchi. GASTROINTESTINAL: Abdomen soft, non-tender, nondistended. EXTREMITIES: No edema or joint tenderness. BACK: Left CVA tenderness NEURO: AOx3. SKIN: No rash or erythema of visible areas Initial Vital Signs Initial Vital Signs: Vital Signs Temperature 98.6 F 04/06/22 19:48 Pulse Rate 74 04/06/22 19:48 Respiratory Rate 16 04/06/22 19:48 Blood Pressure 126/53 L 04/06/22 19:48 Pulse Oximetry 98 04/06/22 19:48 Oxygen Delivery Method 04/06/22 19:48 Course Orders Ordered: ED Orders 04/06/22 19:50 Urine Culture Stat Urine Microscopic Stat Discontinued Medications Hydrocodone Bitart/Acetaminophen (Hydrocodone/Acet 5/325 Prepack) 1 bottle MISC SEEINSTR ONE Stop: 09/07/22 21:24 Last Admin: 04/06/22 21:30 Dose: 1 bottle Documented By: LAMBERT Cefazolin Sodium (Cephalexin 250 Mg Prepack) 1 bottle MISC SEEINSTR ONE Stop: 04/06/22 21:24 Last Admin: 04/06/22 21:30 Dose: 1 pack Documented By: LAMBERT Ondansetron HCl (Ondansetron 4 Mg Odt Prepack) 1 bottle MISC SEEINSTR ONE Stop: 04/06/22 21:24 Last Admin: 04/06/22 21:30 Dose: 1 bottle Documented By: LAMBERT Vital Signs Vital signs: Vital Signs - 8 hr 04/06/22 19:48 04/06/22 21:39 Temperature 98.6 F Pulse Rate 74 70 Respiratory Rate 16 18 Blood Pressure 126/53 L 115/56 L Pulse Oximetry 98 99 Oxygen Delivery Method Room Air Room Air MDM - Female Genitourinary Lab Data Labs: Lab Results 04/06/22 Range/Units 19:50 Urine RBC 0-1/hpf (0-5/HPF) Urine WBC >100/hpf H (0-5/HPF) Ur Squamous Epith Cells 1-5 /hpf (0-5/HPF) Ur Transition Epith Cell 5-10/hpf H (0-5/HPF) Urine Bacteria Many (>30) H (None) Ur Culture Indicated? Culture not indicate Point of Care Testing Test Results Negative Urine Dip Bedside Urine Glucose Negative Bedside Urine Ketone - Negative Urine Specific [place] 1.030 Bedside Urine Occult Blood +/- Bedside Urine pH 6 Bedside Urine Protein ++ 100 Bedside Urine Urobilinogen - Negative Bedside Urine Nitrite - Negative Bedside Urine Leukocytes + 70 Esterase MDM Narrative Medical decision making narrative: Patient complains of dysuria, frequency and urgency with some mild systemic complaints. She states she is had UTIs in the past and this feels similar. She did have a thorough evaluation recently at an outside facility that had unremarkable urine, pelvic exam was performed that also was unremarkable. Her urine here is rather convincing, she will be treated with an extended course given the presence of pyelonephritis. Return precautions discussed and questions answered to her apparent satisfaction Discharge Plan Departure Patient Disposition: Home Clinical Impression: Pyelonephritis Instructions: DI for Kidney Infection Activity Restrictions/Additional Instructions: *You have been diagnosed with [pyelonephritis] *What to do: *Please continue to take your regular medications as directed. [x ] New medication prescriptions sent to your pharmacy: [[facility] ] [ ] New medication written as a paper prescription [ ] No new medications given *Please follow up with your primary care provider in 2-3 days, call for an appointment. Let them know you were seen in the Emergency Department and that we ask that you be seen in follow up. We will electronically transmit a record of today's note if your PCP is in our system *If you do not have a primary care provider please contact the [facility] Resource line at [phone]. They will ask some questions about your medical history and help get you set up with a doctor in the community. *Return to Emergency Department if you should have any new, worsening or concerning symptoms, such as [fever greater than 101 F, shaking chills, worsening pain, persistent vomiting or other bothersome symptoms] Prescriptions: New ketorolac 10 mg tablet 10 mg PO Q6H PRN (Reason: pain) Qty: 14 0RF cephalexin 500 mg capsule 500 mg PO BID Qty: 20 0RF No Action ondansetron 4 mg tablet,disintegrating 4 mg PO TID-QID PRN (Reason: nausea and vomiting) Qty: 10 0RF ibuprofen 800 mg tablet 800 mg PO Q8H PRN (Reason: pain) Qty: 21 0RF escitalopram oxalate 10 mg tablet 10 mg PO QAM Label Comments: TAKE 1 TABLET BY MOUTH EVERY MORNING ondansetron 4 mg tablet,disintegrating 4 mg PO Q8H PRN (Reason: nausea and vomiting) Qty: 10 0RF ondansetron 4 mg tablet,disintegrating 4 mg PO Q8H PRN (Reason: nausea and vomiting) Qty: 10 0RF Visit Report Forms: Patient Portal/API
[2022-04-06 20:35] LABS: Bacteria Urine Many (>30); RBC Urine 0-1/HPF (0-5/HPF); Squamous Epithelial Cell Urine 1-5 /HPF (0-5/HPF); Transitional Epi Cells Urine 5-10/HPF (0-5/HPF); WBC Urine >100/HPF (0-5/HPF)
[2022-04-06] MEDS: cephALEXin 250 MG PREPACK 1 BOTTLE MISC (21:30)
[2022-04-06] MEDS: ONDANSETRON 4 MG ODT PREPACK 1 BOTTLE MISC (21:30)
[2022-04-06] MEDS: HYDROCODONE/ACET 5/325 PREPACK 1 BOTTLE MISC (21:30)
[2022-04-06 21:39] VITALS: BP 115/56; PULSE 70; RESP 18; O2SAT 99
== END 2022-04-06 21:39 | disposition home or self-care (01) ==
PROVIDERS: Emergency Provider Emergency Medicine
DX: N12 Tubulo-interstitial nephritis, not specified as acute or chronic (principal)
CPT/HCPCS: 81003; 81015; 81025; 87077; 87086; 87186; 99282; 99283

== ENCOUNTER 2022-06-16 18:41 | Emergency (ER) | payer OTHER, MEDICAID, SELFPAY ==
[2022-06-16 18:45] VITALS: BP 119/56; PULSE 75; RESP 18; TEMP 37.5; O2SAT 98; BMI 26.1
--- NOTE | 2022-06-16 18:52 | DI.RAD.S_ITS ---
PROCEDURE: XR CHEST 2V INDICATIONS: 2 wks cough TECHNIQUE: 2 views of the chest were acquired. COMPARISON: [facility], CR, XR CHEST 2V, 12/18/2021, 8:22. FINDINGS: Surgical changes and devices: None. Lungs and pleura: Lungs are clear. No pleural effusions or pneumothorax. Mediastinum: Mediastinal contours are normal. Heart size is normal. Bones and chest wall: No suspicious bony abnormalities. Soft tissues appear unremarkable. IMPRESSION: No acute cardiopulmonary disease. Dictated by: Colleen Aviles M.D. on 06/16/2022 at 19:30 Approved by: Colleen Aviles M.D. on 06/16/2022 at 19:30
[2022-06-16 19:40] LABS: Influenza A - CEPHEID Flu A NEGATIVE (NEGATIVE); Influenza B - CEPHEID Flu B NEGATIVE (NEGATIVE); Respiratory Syncytial Virus Negative (Negative)
[2022-06-16 19:42] LABS: COVID-19 CEPHEID 4-PLEX PCR Negative (Negative)
== END 2022-06-16 23:07 | disposition left against medical advice (07) ==
PROVIDERS: Emergency Provider Emergency Medicine
DX: R05.9 Cough, unspecified (principal); Z20.822 Contact with and (suspected) exposure to COVID-19
CPT/HCPCS: 0241U; 71046; 99281